=== PATIENT | male | born 1990 | race Caucasian/White ===

== ENCOUNTER 2025-02-12 12:55 | Outpatient (AMB) | payer OTHER, SELFPAY ==
--- OUTSIDE RECORDS SUMMARY | 2025-02-12 12:58 | XMS_ITS | Clinical Summary ---
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 Take with meals or food to reduce stomach upset. 60 tablet 3 Active Family History Medical History Relation Name Comments Diabetes Maternal Grandfather Breast cancer Maternal Grandmother Diabetes Maternal Grandmother Relation Name Status Comments Maternal Grandfather Maternal Grandmother Social History Tobacco Use Types Packs/Day Years Used Date Smoking Tobacco: Never Smokeless Tobacco: Never Tobacco Cessation:Counseling Given: Not Answered Alcohol Use Standard Drinks/Week Comments Yes 0 (1 standard drink = 0.6 oz pur e alcohol) rarely PHQ-2 Answer Date Recorded PHQ-2 Total Score 0 10/25/2023 Sex and Gender Information Value Date Recorded Sex Assigned at Male 10/25/2023 2:10 PM EDT Legal Sex Male 12:00 PM EDT Gender Identity Male 10/25/2023 2:10 PM EDT Sexual Orientation Not on file Last Filed Vital Signs Vital Sign Reading Time Taken Comments Blood Pressure 135/88 10/25/2023 2:17 PM EDT Pulse 76 10/25/2023 2:17 PM EDT Temperature 36.6 C (97.8 F) 10/25/2023 2:17 PM EDT Respiratory Rate - - Oxygen Saturation 98% 10/25/2023 2:17 PM EDT Inhaled Oxygen Concentration - - Weight 86.2 kg (190 lb) 10/25/2023 2:17 PM EDT Height 175.5 cm (5' 9.1 ) 10/25/2023 2:17 PM EDT Body Mass Index 27.98 10/25/2023 2:17 PM EDT Plan of Treatment Health Maintenance Due Date Last Done Comments Hepatitis C Virus Screening 1990 HIV Screening 08/13/2003 DTaP/Tdap/Td Vaccines (1 - Tdap) 2009 Hepatitis B Vaccines (1 of 3 - 19+ 3-dose series) 2009 Influenza Vaccine 09/18/2024 COVID-19 Vaccine (1 - 2024-2 6 season) 2024 HPV Vaccines (No Doses Required) Completed Pneumococcal Vaccine: Pediat hernan (0-5 Years) and At-Risk Patients (6 to 49 Years) Aged Out No longer eligible b ased on patient's age to complete this topic Insurance [facility] [employer] Care Teams Automotive Painter Relationship Specialty Start Date End Date Shira Peace MD [address] [place] [address] PCP - General Internal Medicine 10/25/23
--- NOTE | 2025-02-12 13:14 | MHC.PC.OV ---
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 Transferring care from [facility]. Medical records have not been requested and have not received. 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 He reports having shaky hands since he was about 18 years old. The tremor is present all the time but has recently worsened, now interfering with fine motor skills like opening small containers and sometimes affecting his writing. He denies any associated weakness, dropping things, tingling, or numbness. He tried stopping caffeine, but this did not improve his symptoms. Denies any constipation, diarrhea, heat or cold intolerance. The patient's mother also has a history of tremors that started when she was young. 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 Regarding the skin lesion, the patient has noticed a colored dot on his nose for a long time. He reports it has not changed in size and does not bleed. His great-grandfather had skin cancer, and he has significant sun exposure due to his work. His past medical history is notable for vitamin D deficiency. He denies any past surgeries. He takes no daily medications, rarely drinks alcohol, and denies use of tobacco or recreational drugs. [facility] Surgical History (Updated 02/12/25 @ 13:20 by DANIELLA Byrnes) History of wisdom tooth extraction Social History (Updated 02/12/25 @ 13:21 by RENETTA Byrnes Housing: House Alcohol intake: current Alcohol intake frequency: holidays/special occasions only Patient Tobacco Use Status: Never used Tobacco e-Cigarette/Vaping Use: Never Used Second Hand Smoke Exposure: No service: Yes Current occupational status: employed Cognitive needs: No Hearing needs: No Vision needs: No Questionnaire PHQ-9 Over the last 2 weeks, how often have you been bothered by any of the following problems? 1. Little interest or pleasure in doing things: not at all 2. Feeling down, depressed, or hopeless: not at all 3. Trouble falling or staying asleep, or sleeping too much: not at all 4. Feeling tired or having little energy: not at all 5. Poor appetite or overeating: not at all 6. Feeling bad about yourself - or that you are a failure or have let yourself or your family down: not at all 7. Trouble concentrating on things, such as reading the newspaper or watching television: not at all 8. Moving or speaking so slowly that other people could have noticed. Or the opposite - being so fidgety or restless that you have been moving around a lot more than usual: not at all 9. Thoughts that you would be better off or of hurting yourself in some way: not at all Total score: 0 Depression Screening Interpretation: Negative Depression Screening Done: Yes Source: Developed by Drs. Damion Carvajal, Silvia Jennings, Keaton Rai and colleagues, with an educational kendal from [employer]. Thrive Questionnaire Date Thrive assessed: 02/12/25 I am a: Patient What is your living situation today?: I have a steady place to live Within the past 12 months, did the food you bought not last and you didn't have the money to get more?: Never true Within the past 12 months, did you worry whether your food would run out before you got money to buy more?: Never true Do you have trouble paying for medicines?: No Do you have trouble getting transportation to medical appointments?: No Do you have trouble paying your heating and electricity bill?: No Do you have trouble taking care of your child, family member or friend?: No Do you have trouble with day-to-day activities such as bathing, preparing meals, shopping, managing finances, etc.?: No Are you currently unemployed and looking for a job?: No Are you interested in more education?: No Please select the resources that you would like help with: None Currently or been in a relationship where the following occur: No concerns reported THRIVE Score: 0 AUDIT C Alcohol Use Questionnaire (AUDIT-C) 1. How often do you have a drink containing alcohol?: Monthly or less 2. How many drinks containing alcohol do you have on a typical day when you are drinking?: 1 or 2 3. How often do you have six or more drinks on one occasion?: Never Total Score: 1 GÓMEZ-7 AMB Questionnaire GÓMEZ-7 Date GÓMEZ - 7 assessed: 02/12/25 Feeling nervous, anxious, or on edge: 0 = Not at all Not being able to stop or control worryin = Not at all Worrying too much about different things: 0 = Not at all Trouble relaxin = Not at all Being so restless that it is hard to sit still: 0 = Not at all Becoming easily annoyed or irritable: 0 = Not at all Feeling afraid as if something awful might happen: 0 = Not at all Total GÓMEZ-7 score (0-4 normal; 5-9 mild; 10-14 moderate; 15-21 severe): 0 Source: Developed by Drs. Damion Carvajal, Silvia Jennings, Keaton Rai and colleagues, with an educational kendal from [employer]. Physical exam (Primary Care) Vital Signs: Last Vital Signs Temp 97.1 F 02/12/25 13:15 Pulse 94 02/12/25 13:15 BP 130/90 H 02/12/25 13:15 Pulse Ox 98 02/12/25 13:15 Oxygen Delivery Method Room Air 02/12/25 13:15 General: Well-appearing, alert, oriented ?3, in no acute distress. Cardiovascular: RRR, S1-S2 appreciated, no murmurs, rubs or gallops. Respiratory: Lungs clear to auscultation bilaterally, no wheezes, rales or rhonchi. Neurologic: Alert and oriented X3, cranial nerves II?XII grossly intact, sensation and strength intact in bilateral lower and upper extremities. Could not appreciate tremors. No dysdiadochokinesia or dysmetria. No ataxia. Coordination is intact. Skin: 1-2 mm round symmetrical homogenous in color lesion on nose tip noted BMI result Body Mass Index 30.0 Tobacco/Smoking Status: Tobacco use Status Tobacco use date assessed 02/12/25 02/12/25 13:22 Patient Tobacco Use Status Never used Tobacco 02/12/25 13:22 e-Cigarette/Vaping Use Never Used 02/12/25 13:22 PHQ-9: PHQ-9 Score PHQ-9: Total score 0 02/12/25 13:30 Depression Screening Interpretation: Negative Thrive Assessment: Date of Thrive Assessment Date Thrive assessed 02/12/25 02/12/25 13:22 Currently or been in a relationship where the following occur: No concerns reported Coding Level of Care Code New Pt Level 4 (45892) Diagnoses Establishing care with new doctor, encounter for Z76.89 Tremor of hand R25.1 Lesion of nose J34.89 Assessment & Plan Assessment & Plan (1) Establishing care with new doctor, encounter for: Code(s): Z76.89 - Persons encountering health services in other specified circumstances Plan: Patient presenting to establish care (2) Tremor of hand: Code(s): R25.1 - Tremor, unspecified Category: Medical Plan: The patient presents with a long-standing history of bilateral hand tremors, that he reports is worsening recently affecting his fine motor skills and writing sometimes, that did not improve with cutting out caffeine. Patient is not on any medications or stimulants, rarely drinks alcohol. No complaints of anxiety. Denies numbness, tingling, or weaknesses. No ataxia or or limp incoordination. Symptoms most likely secondary to essential tremor, especially supported by positive family history in the patient's mother. will check electrolytes, magnesium, thyroid. A trial of propranolol 20 mg twice daily for symptomatic relief Also refer to neurology for further evaluation (3) Lesion of nose: Code(s): J34.89 - Other specified disorders of nose and nasal sinuses Category: Medical Plan: Patient with presenting with a longstanding stable lesion on his nose, that is a small 1-2 mm round symmetrical homogenous in color, consistent with a benign nevus. Given his significant occupational sun exposure and family history of skin cancer in grandfather, will refer to Dermatology for further evaluation Orders: Orders Comprehensive Met. Panel Today Z00.00 - Encounter for general adult medical examination without abnormal findings Lipid Panel with Reflex Today Z13.220 - Encounter for screening for lipoid disorders Vitamin D 25-OH (D2 and D3) Today E55.9 - Vitamin D deficiency, unspecified TSH reflex Free T4 Today R25.1 - Tremor, unspecified Free T4 (Free Thyroxine) Today R25.1 - Tremor, unspecified Magnesium Today R25.1 - Tremor, unspecified Complete Blood Count Auto Diff Today Z00.00 - Encounter for general adult medical examination without abnormal findings Referrals Neurology Referral R25.1 - Tremor, unspecified Dermatology Referral J34.89 - Other specified disorders of nose and nasal sinuses, L98.9 - Disorder of the skin and subcutaneous tissue, unspecified Medications: New propranolol 20 mg PO BID 30 tabs 0RF
[2025-02-12 13:15] VITALS: BP 130/90; PULSE 94; TEMP 36.2; O2SAT 98
== END 2025-02-12 13:48 | disposition home or self-care (01) ==
LOC: HO.HMCH 12:56
PROVIDERS: PCP Student in an Organized Health Care Education/Training Program; Visit Provider Student in an Organized Health Care Education/Training Program
DX: Z76.89 Persons encountering health services in other specified circumstances (principal); R25.1 Tremor, unspecified; J34.89 Other specified disorders of nose and nasal sinuses

== ENCOUNTER → 2025-02-12 12:55 | Outpatient (BNVA) | payer OTHER, SELFPAY | PROVIDERS: Visit Provider Student in an Organized Health Care Education/Training Program | DX: Z76.89 Persons encountering health services in other specified circumstances (principal); R25.1 Tremor, unspecified; J34.89 Other specified disorders of nose and nasal sinuses; Z82.0 Family history of epilepsy and other diseases of the nervous system; Z00.00 Encounter for general adult medical examination without abnormal findings; Z13.220 Encounter for screening for lipoid disorders; E55.9 Vitamin D deficiency, unspecified | CPT/HCPCS: 99202 ==